=== PATIENT | male | born 1990 | race Two or more races ===

== ENCOUNTER 2018-09-19 19:43 | Emergency (ER) | payer SELFPAY ==
[~2018-09-19] VITALS: Ht 175.3 cm; Wt 74.8 kg
[2018-09-19 20:06] VITALS: BP 140/82
[2018-09-19] MEDS ORDERED: BACITRACIN ZINC OINT PACKET 1 EA PACKET TP ONE (20:16)
== END 2018-09-19 20:31 | disposition home or self-care (01) ==
LOC: ER 19:46
DX: S09.8XXA Other specified injuries of head, initial encounter (principal); R04.0 Epistaxis; J45.909 Unspecified asthma, uncomplicated; W22.8XXA Striking against or struck by other objects, initial encounter; Y93.89 Activity, other specified; Y92.89 Other specified places as the place of occurrence of the external cause; Y99.8 Other external cause status
CPT/HCPCS: A6402

== ENCOUNTER 2018-11-29 21:42 | Emergency (ER) | payer SELFPAY ==
[~2018-11-29] VITALS: Ht 175.3 cm; Wt 72.6 kg
[2018-11-29 21:46] VITALS: BP 144/92
[2018-11-29] MEDS ORDERED: IBUPROFEN 600 MG TABLET PO ONE ×2 (22:19→22:30)
== END 2018-11-29 23:53 | disposition home or self-care (01) ==
LOC: ER 21:46
DX: S60.221A Contusion of right hand, initial encounter (principal); S60.410A Abrasion of right index finger, initial encounter; S60.412A Abrasion of right middle finger, initial encounter; J45.909 Unspecified asthma, uncomplicated; Z60.2 Problems related to living alone; W22.01XA Walked into wall, initial encounter; Y93.89 Activity, other specified; Y92.89 Other specified places as the place of occurrence of the external cause; Y99.8 Other external cause status
CPT/HCPCS: 73130-TC